=== PATIENT | female | born 1940 | race Caucasian/White ===

== ENCOUNTER → 2020-04-06 14:47 | Outpatient (CLI) | payer MEDICARE, OTHER, SELFPAY ==
--- NOTE | 2020-04-06 15:40 | DI.ECHO.S_ITS ---
Echocardiogram Report + + :Name: JOHN BYRD Study Date: 04/06/2020 Height: 59 in : :[facility] Weight: 172 lb : : Gender: Female BSA: 1.7 m2 : :: 1940 Age: 79 yrs BP: 128/58 mmHg: :Reason For Study: Cardiomegaly : :Ordering Physician: Sid : :Zane Hedrick Performed By: Hoa Pinto : :Referring: SID HEDRICK : + + Interpretation Summary The left ventricle is normal in size. The ejection fraction is estimated to be 60-65%. The right ventricle is normal in size and function. There is mild aortic regurgitation. Compared to the prior echo study, there has been an increase in the severity of aortic regurgitation. There is mild tricuspid regurgitation. Compared to the prior echo exam, there has been an increase in TR severity. The right ventricular systolic pressure is estimated to be at least 34 mmHg based on an estimated right atrial pressure of 3 mm Hg. Mild atherosclerotic plaque(s) in the aortic arch. Procedure: A two-dimensional transthoracic echocardiogram with color flow and Doppler was performed. The study quality was technically adequate. Comparison is made with the echocardiogram of 09/02/2009. The patient was in normal sinus rhythm during the exam. The heart rate ranged between 63-73 bpm during the study. Left Ventricle: The left ventricle is normal in size. Proximal septal thickening is noted. There is no echo evidence for significant left ventricular outflow tract obstruction. There is no thrombus. The ejection fraction is estimated to be 60-65%. There are no focal wall motion abnormalities. MV E/A: 1.2 Med Peak E' Richar: 7.6 cm/sec E/E' med: 14.0. Right Ventricle: The right ventricle is normal in size and function. Atria: The left atrium is mildly dilated. The left atrium has mildly increased in size since the prior echo exam. Right atrial size is normal. There is no Doppler evidence for an interatrial shunt. Mitral Valve: Heavy anterior mitral annulus calcification. The mitral valve leaflets are mildly calcified. There is trace mitral regurgitation. Aortic Valve: The aortic valve is trileaflet. The aortic valve opens well. The aortic valve is slightly calcified. There is no aortic valve stenosis. There is mild aortic regurgitation. Compared to the prior echo study, there has been an increase in the severity of aortic regurgitation. Tricuspid Valve: The tricuspid valve is normal. The right ventricular systolic pressure is estimated to be at least 34 mmHg based on an estimated right atrial pressure of 3 mm Hg. There is mild tricuspid regurgitation. Compared to the prior echo exam, there has been an increase in TR severity. Pulmonic Valve: The pulmonic valve is not well seen, but is grossly normal. There is trace pulmonic regurgitation. Great Vessels: The aortic root is normal size. The ascending aorta is normal in size. Mild atherosclerotic plaque(s) in the aortic arch. The IVC is of normal diameter and collapses greater than 50% with a sniff. This suggests a low right atrial pressure of 3 mm Hg. Pericardium/ Pleura There is no pericardial effusion. There is no pleural effusion. MMode/2D Measurements & Calculations LVIDd: 4.8 cm LVOT diam: 1.9 cm LVIDs: 3.0 cm Ao root diam: 2.8 cm FS: 37.6 % asc Aorta Diam: 3.0 cm EPSS: 1.1 cm Ao Arch Diam (Prox Trans): 2.7 cm IVSd: 0.87 cm LVPWd: 0.96 cm LV caceres. diameter/BSA (cm/m^2): 2.8 LV sys. diameter/BSA (cm/m^2): 1.7 LA A2 area: 21.1 cm2 RA long axis: 5.2 cm LA A4 area: 19.2 cm2 RA area: 15.3 cm2 LA length (vol): 5.7 cm RA vol: 38.3 ml LA vol: 60.3 ml RA : 22.1 ml/m2 LA vol index: 34.9 ml/m2 IVC diam: 1.5 cm RVD1 (basal): 3.0 cm TAPSE: 2.4 cm Doppler Measurements & Calculations Ao V2 max: 163.7 cm/sec LVOT Max Richar: 114.0 cm/sec Ao V2 mean: 109.9 cm/sec LV V1 max P.2 mmHg Ao max P.7 mmHg LV V1 VTI: 27.9 cm Ao mean P.5 mmHg LIV(I,D): 2.0 cm2 Ao V2 VTI: 38.6 cm LIV(V,D): 1.9 cm2 sev ratio: 0.72 LIV indexed to BSA (cm^2/m^2): 1.1 AI P1/2t: 509.5 msec AI dec slope: 233.5 cm/sec2 MV E max richar: 106.0 cm/sec TR max richar: 279.4 cm/sec MV A max richar: 91.1 cm/sec TR max P.2 mmHg MV E/A: 1.2 PA V2 max: 88.4 cm/sec Med Peak E' Richar: 7.6 cm/sec PA V2 mean: 58.6 cm/sec E/E' med: 14.0 PA mean P.6 mmHg Lat Peak E' Richar: 8.9 cm/sec PA pr(Accel): 49.9 mmHg E/E' lat: 11.9 E/e' average: 13.0 MV dec time: 0.26 sec SV(LVOT): 75.6 ml Reading Physician:01:26 PM
== END ==
PROVIDERS: PCP Internal Medicine; Referring Provider Internal Medicine Cardiovascular Disease; Visit Provider Internal Medicine Cardiovascular Disease
DX: I08.2 Rheumatic disorders of both aortic and tricuspid valves (principal); I70.0 Atherosclerosis of aorta
CPT/HCPCS: 93306

== ENCOUNTER → 2023-08-09 08:43 | Outpatient (CLI) | payer MEDICARE, OTHER, SELFPAY ==
--- NOTE | 2023-08-09 | DI.MRI.S_ITS ---
PROCEDURE: MR LUMBAR SPINE WO CON INDICATIONS: Spondylolisthesis, lumbar region TECHNIQUE: Noncontrast sagittal T1 spin echo and T2 fast echo, sagittal STIR, and T2 fast spin echo through the lumbar spine. In cases with scoliosis, additional coronal T2 fast spin echo may be performed. COMPARISON: [facility] [place], CR, XR LUMBAR SPINE 2 OR 3 VIEWS, 07/05/2023, 10:32. FINDINGS: Image quality: Diagnostic, with note made of motion artifact. Alignment and Curvature: There is mild grade 1 anterolisthesis at the L4-L5 level. No definite associated pars defects can be seen. Bone Marrow: Marrow is of normal overall signal. No acute vertebral body compression fractures. Spinal Cord: Conus medullaris terminates at the L2 level. Visualized cord demonstrates normal signal and size. Paraspinous Soft Tissues: No paravertebral masses. T12-L1: No significant abnormality is seen. L1-L2: Normal appearance. L2-L3: Mild loss of disc height is seen. Loss of disc signal is seen. Mild generalized disc bulge is seen. Moderate facet joint hypertrophy is seen. Moderate bilateral neural foraminal narrowing is seen. No significant central canal narrowing is seen. L3-L4: Moderate loss of disc height is seen. Loss of disc signal is seen. Reactive marrow endplate changes are seen posteriorly, which are hyperintense on T1-weighted and T2-weighted imaging and most consistent with fatty metaplasia (Modic type II changes). Moderate disc bulge is seen, which is eccentric to the left. There is a superimposed central disc protrusion. There are also protruding components seen into both neural foramina. At least moderate facet hypertrophy is seen, left worse than right. There is at least moderate right-sided and moderate to severe left-sided neural foraminal narrowing. At least moderate central canal narrowing is seen, as on series 6, image 6. L4-L5: Gbls-[id number] loss of disc height and disc signal can be seen. Moderate generalized disc bulge is seen. There is a superimposed central disc protrusion. At least moderate facet hypertrophy is seen. Associated hypertrophy of the ligamentum flavum can be seen. There is at least moderate right-sided and moderate to severe left-sided neural foraminal narrowing. There is a degree of compression seen upon the exiting nerve roots. Moderate to severe central canal narrowing is seen, as on series 6, image 11. L5-S1: The disc height is well-preserved. Loss of disc signal is seen at this level. Mild to moderate disc bulge is seen. There is at least moderate right-sided and moderate left-sided facet hypertrophy. Moderate bilateral neural foraminal narrowing is seen. Mild central canal narrowing is seen. 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 Dictated by: Felix Zayas M.D. on 08/09/2023 at 16:48 Approved by: Felix Zayas M.D. on 08/09/2023 at 16:52
== END ==
PROVIDERS: PCP Internal Medicine; Referring Provider Physical Medicine & Rehabilitation Pain Medicine; Visit Provider Physical Medicine & Rehabilitation Pain Medicine
DX: M43.16 Spondylolisthesis, lumbar region (principal); M47.816 Spondylosis without myelopathy or radiculopathy, lumbar region; M47.817 Spondylosis without myelopathy or radiculopathy, lumbosacral region
CPT/HCPCS: 72148

== ENCOUNTER → 2023-11-22 14:10 | Outpatient (CLI) | payer MEDICARE, OTHER, SELFPAY ==
--- NOTE | 2023-11-22 | DI.ECHO.S_ITS ---
[place] [facility]---------+ [facility] +---------+ : : [address] : : : : [id number] : : : : Phone: [phone] Echocardiogram Report + + :Name: JOHN BYRD Study Date: 11/22/2023 Height: 59 in : :[facility] ReadingLocation: Weight: 170 lb : : Gender: Female BSA: 1.7 m2 : :: 1940 Age: 82 yrs BP: 172/91 mmHg: :Reason For Study: AORTIC VALVE INSUFFICIENCY : :Ordering Physician: ANDREY, : :BENNY Peterson Performed By: Guru Pichardo : :Referring: BENNY BALDERAS : + + Interpretation Summary The left ventricle is normal in size and wall thickness. Left ventricular systolic function is normal. The ejection fraction is estimated to be 60-65%. No significant change in LVEF from the previous study. The right ventricle is normal in size and function. Heavy predominantly anterior mitral annulus calcification with calcification extending into the LV cavity side towards LV outflow tract without any significant obstruction. It was seen on the previous echocardiogram of April 06, 2020 as well. No significant mitral stenosis or regurgitation. There is mild aortic regurgitation. Compared to the prior echo study, there has been no change in the severity of aortic regurgitation. The IVC is of normal diameter and collapses greater than 50% with a sniff. This suggests a low right atrial pressure of 3 mm Hg. Procedure: A two-dimensional transthoracic echocardiogram with color flow and Doppler was performed. The study quality was technically adequate. Comparison is made with the echocardiogram of 04/06/2020. The patient was in normal sinus rhythm during the exam. The heart rate ranged between 69-77 bpm during the study. Left Ventricle: The left ventricle is normal in size and wall thickness. There is no thrombus. The ejection fraction is estimated to be 60-65%. Left ventricular systolic function is normal. There are no focal wall motion abnormalities. MV E/A: 1.2 Med Peak E' Richar: 8.3 cm/sec E/E' med: 12.7. Right Ventricle: The right ventricle is normal in size and function. The right ventricular systolic function is normal. Atria: The left atrial size is normal. The left atrium has mildly decreased in size since the prior echo exam. Right atrial size is normal. The interatrial septum grossly appears intact with no obvious evidence for an atrial septal defect. Mitral Valve: Heavy predominantly anterior mitral annulus calcification with calcification extending into the LV cavity side towards LV outflow tract without any significant obstruction. It was seen on the previous echocardiogram of April 06, 2020 as well. No significant mitral stenosis or regurgitation. There is no mitral valve stenosis. There is trace mitral regurgitation. Aortic Valve: The aortic valve is trileaflet. The aortic valve is mildly calcified. There is no aortic valve stenosis. There is mild aortic regurgitation. Compared to the prior echo study, there has been no change in the severity of aortic regurgitation. Tricuspid Valve: The tricuspid valve is normal. There is no tricuspid stenosis. No tricuspid regurgitation. Pulmonary artery pressures cannot be estimated because of the lack of a measurable TR jet velocity. Pulmonic Valve: The pulmonic valve is not well visualized. There is no pulmonic valvular stenosis. There is no pulmonic valvular regurgitation. Great Vessels: The aortic root is normal size. The dimensions of the ascending aorta are normal. Aortic arch not well-visualized. The IVC is of normal diameter and collapses greater than 50% with a sniff. This suggests a low right atrial pressure of 3 mm Hg. Pericardium/ Pleura There is no pericardial effusion. There is no pleural effusion. MMode/2D Measurements & Calculations LVIDd: 4.7 cm LVOT diam: 1.9 cm LVIDs: 3.1 cm Ao root diam: 2.9 cm FS: 35.1 % asc Aorta Diam: 3.0 cm IVSd: 0.93 cm LVPWd: 0.98 cm LV caceres. diameter/BSA (cm/m^2): 2.7 LV sys. diameter/BSA (cm/m^2): 1.8 LA A2 area: 16.6 cm2 RA long axis: 4.7 cm LA A4 area: 17.5 cm2 RA area: 13.0 cm2 LA length (vol): 5.5 cm RA vol: 30.8 ml LA vol: 45.3 ml RA : 17.9 ml/m2 LA vol index: 26.3 ml/m2 IVC diam: 1.2 cm RVD1 (basal): 3.2 cm RVD2 (mid): 2.7 cm TAPSE: 2.7 cm Doppler Measurements & Calculations Ao V2 max: 176.3 cm/sec LVOT Max Richar: 122.5 cm/sec Ao V2 mean: 120.8 cm/sec LV V1 max P.0 mmHg Ao max P.4 mmHg LV V1 VTI: 32.8 cm Ao mean P.7 mmHg LIV(I,D): 2.3 cm2 Ao V2 VTI: 39.1 cm LIV(V,D): 1.9 cm2 sev ratio: 0.84 LIV indexed to BSA (cm^2/m^2): 1.3 AI P1/2t: 634.3 msec AI dec slope: 193.1 cm/sec2 MV E max richar: 105.5 cm/sec PA V2 max: 99.9 cm/sec MV A max richar: 91.4 cm/sec PA V2 mean: 66.8 cm/sec MV E/A: 1.2 PA mean P.0 mmHg Med Peak E' Richar: 8.3 cm/sec PA pr(Accel): 37.9 mmHg E/E' med: 12.7 Lat Peak E' Richar: 7.0 cm/sec E/E' lat: 15.1 E/e' average: 13.9 MV dec time: 0.20 sec SV(LVOT): 88.6 ml Reading Physician:04:17 PM
--- NOTE | 2023-11-22 | DI.NM.S_ITS ---
PROCEDURE: NM ROMAN PERF SPECT R&S PHARM Rest and pharmacological stress myocardial perfusion SPECT with gated imaging and ejection fraction RADIOPHARMACEUTICAL: 25.7 mCi Tc-99m tetrafosmin IV at rest and 25.7 mCi Tc-99m tetrafosmin IV at peak effect of pharmacological stress. [id number] was performed. INDICATIONS: Nonrheumatic aortic (valve) insufficiency, dyspnea TECHNIQUE: Radiopharmaceutical was injected at peak stress test, and also at rest. SPECT images were obtained. SPECT myocardial perfusion images were displayed in short axis, horizontal long axis, and vertical long axis views. Gated images were reviewed using [employer] software. COMPARISON: None. CARDIAC STRESS: A pharmacologic stress test was performed under the supervision of an attending staff, using an infusion of regadenoson 0.4 mg IV. Hemodynamic data: There is normal blood pressure and heart rate response to pharmacologic stress. Symptoms: The patient denied anginal chest pain. EKG: No diagnostic changes of ischemia; no ectopy. FINDINGS: Raw data: There is good myocardial uptake of radiotracer. No significant motion artifacts. Gdvg-yj-vzxnf ratio is 0.34 (normal is less than 0.38 for tetrafosmin tracer). Left ventricle function: Gated images demonstrate normal left ventricular wall thickening. No segmental wall motion abnormalities. No transient ischemic dilation; TID is 1.07 (normal less than 1.3). Left ventricle resting end diastolic volume is 66 mL. Left ventricle stress ejection fraction is >75%, normal range is above 45%. Myocardial perfusion: There is normal distribution of activity in the right and left ventricular myocardium. No fixed or reversible perfusion defects. IMPRESSION: Low risk study. No evidence of pharmacologic induced ischemia or scar. Normal LV size with hyperdynamic function. Dictated by: Reyna Mueller D.O. on 11/23/2023 at 16:43 Approved by: Reyna Mueller D.O. on 11/23/2023 at 16:45
== END ==
PROVIDERS: PCP Internal Medicine; Referring Provider Nurse Practitioner; Visit Provider Nurse Practitioner
DX: I35.1 Nonrheumatic aortic (valve) insufficiency (principal); I34.81 Nonrheumatic mitral (valve) annulus calcification; R06.09 Other forms of dyspnea
CPT/HCPCS: 78452; 93017; 93306; A9502; J2785